=== PATIENT | female | born 1960 | race Caucasian/White ===

== ENCOUNTER 2018-04-23 17:30 | Inpatient (IN) | payer OTHER ==
[~2018-04-23] VITALS: Ht 160 cm; Wt 75.5 kg
[2018-04-23 17:31] VITALS: Ht 160 cm; Wt 75.5 kg
[2018-04-23 17:53] LABS: BASOPHIL % 0.4 % (0-2); PLATELET COUNT 275 x10^3mcL (130-400); RED CELL DISTRIBUTION WIDTH 12.9 % (11.5-14.5)
[2018-04-23 18:03] LABS: CALCIUM 8.8 mg/dL (8.5-10.1); CARBON DIOXIDE 28.6 mmol/L (21-32); CHLORIDE SERUM 103 mmol/L (98-107); CREATININE SERUM 1.1 mg/dL (0.6-1.0); GFR1 55 mL/min; GLUCOSE SERUM 138 mg/dL (74-106); POTASSIUM SERUM 3.4 mmol/L (3.5-5.1); SODIUM SERUM 142 mmol/L (136-145)
[2018-04-23 18:05] LABS: ALBUMIN 3.6 g/dL (3.4-5.0); ALKALINE PHOSPHATASE 55 U/L (46-116); ALT/SGPT 45 U/L (14-59); AST/SGOT 35 U/L (15-37); BILIRUBIN TOTAL 0.16 mg/dL (0.20-1.00); TOTAL PROTEIN, SERUM 7.3 g/dL (6.4-8.2)
[2018-04-23 18:07] LABS: CHOLESTEROL 271 mg/dL (<200)
[2018-04-23] MEDS ORDERED: 8 HOUR PAIN RE650 M1 PO (19:39)
[2018-04-23] MEDS ORDERED: [UNRECOGNIZED DRUG - OTHER] TOP (19:42)
[2018-04-23] MEDS ORDERED: FUROSEMIDE20 MG PO (19:43)
[2018-04-23] MEDS ORDERED: ESTRACE2 MG PO (19:43)
[2018-04-23] MEDS ORDERED: VIS50 PO (19:44)
[2018-04-23] MEDS ORDERED: LEVOTHYROXIN0.075 M2 PO (19:45)
[2018-04-23] MEDS ORDERED: KEPPRA1000 M1 PO (19:45)
[2018-04-23] MEDS ORDERED: DITROPAN XL5 MG PO (19:46)
[2018-04-23] MEDS ORDERED: GOOD SENSE OMEP20 MG PO (19:46)
[2018-04-23] MEDS ORDERED: RISPERDAL2 M1 PO (19:47)
[2018-04-23] MEDS ORDERED: SALSALATE500 MG PO (19:47)
[2018-04-23] MEDS ORDERED: IMITREX50 MG PO (19:48)
[2018-04-23] MEDS ORDERED: ZOLOFT100 MG PO (19:48)
[2018-04-23] MEDS ORDERED: HYDROXYZINE PAMOATE PO (19:50)
[2018-04-23 20:15] LABS: FREE T4 0.87 ng/dL (0.76-1.46); FREE THYROXINE INDEX 2.5 ug/dL (1.4-4.5); T4(THYROXINE) 8.7 ug/dL (4.7-13.3)
[2018-04-23 20:18] LABS: T3 TOTAL 1.19 ng/mL
[2018-04-23 20:49] LABS: microscopic required? NO
[2018-04-23 20:59] LABS: urine erythrocyte NEGATIVE (NEGATIVE)
[2018-04-23 21:07] LABS: AMPHETAMINE QUAL UR NONE DETECTED (See below)
[2018-04-23 21:11] VITALS: BP 152/90
[2018-04-24 05:37] VITALS: BP 124/78
[2018-04-24 06:15] LABS: BASOPHIL % 0.4 % (0-2); CALCIUM 8.2 mg/dL (8.5-10.1); CARBON DIOXIDE 29.1 mmol/L (21-32); CHLORIDE SERUM 107 mmol/L (98-107); CREATININE SERUM 0.9 mg/dL (0.6-1.0); GFR1 > 60 mL/min; GLUCOSE SERUM 106 mg/dL (74-106); PLATELET COUNT 240 x10^3mcL (130-400); POTASSIUM SERUM 3.8 mmol/L (3.5-5.1); RED CELL DISTRIBUTION WIDTH 12.8 % (11.5-14.5); SODIUM SERUM 142 mmol/L (136-145)
[2018-04-24 06:28] LABS: T4(THYROXINE) 6.3 ug/dL (4.7-13.3)
[2018-04-24 07:59] LABS: ERYTHROCYTE SED RATE 7 mm/hr (0-30)
[2018-04-24 09:42] VITALS: BP 133/78
[2018-04-24 16:40] VITALS: BP 135/79
[2018-04-24 20:00] VITALS: BP 131/82
[2018-04-25 05:41] VITALS: BP 124/81
[2018-04-25 06:10] LABS: CALCIUM 8.2 mg/dL (8.5-10.1); CARBON DIOXIDE 28.4 mmol/L (21-32); CHLORIDE SERUM 105 mmol/L (98-107); CREATININE SERUM 0.9 mg/dL (0.6-1.0); GFR1 > 60 mL/min; GLUCOSE SERUM 111 mg/dL (74-106); POTASSIUM SERUM 4.1 mmol/L (3.5-5.1); SODIUM SERUM 140 mmol/L (136-145)
[2018-04-25 06:19] LABS: BASOPHIL % 0.5 % (0-2); PLATELET COUNT 242 x10^3mcL (130-400); RED CELL DISTRIBUTION WIDTH 12.8 % (11.5-14.5)
[2018-04-25 09:26] VITALS: BP 129/84
[2018-04-25 12:34] LABS: RAPID PLASMA REAGIN Non Reactive (Non Reactive); RHEUMATOID ARTHRITIS FACTOR <10.0 IU/mL (0.0-13.9)
[2018-04-25 12:49] VITALS: BP 139/84
[2018-04-25 17:00] VITALS: BP 116/70
[2018-04-25 20:13] VITALS: BP 109/64
[2018-04-26 05:23] VITALS: BP 129/68
[2018-04-26 06:38] LABS: BASOPHIL % 0.5 % (0-2); PLATELET COUNT 237 x10^3mcL (130-400); RED CELL DISTRIBUTION WIDTH 12.9 % (11.5-14.5)
[2018-04-26 09:05] VITALS: BP 116/72
[2018-04-26 09:36] VITALS: BP 116/72
[2018-04-26 11:26] VITALS: BP 116/72
[2018-04-26 12:48] VITALS: BP 105/70
== END 2018-04-26 13:59 | disposition other institution (70) | DRG 917 ==
LOC: ED 17:30 → DU 18:50
PROVIDERS: Internal Medicine; Specialist
DX: T50.991A Poisoning by other drugs, medicaments and biological substances, accidental (unintentional), initial encounter (principal); J69.0 Pneumonitis due to inhalation of food and vomit; G92 Toxic encephalopathy; K21.9 Gastro-esophageal reflux disease without esophagitis; F32.9 Major depressive disorder, single episode, unspecified; G40.909 Epilepsy, unspecified, not intractable, without status epilepticus; Z53.29 Procedure and treatment not carried out because of patient's decision for other reasons; F41.9 Anxiety disorder, unspecified; Z68.27 Body mass index [BMI] 27.0-27.9, adult; Y92.143 Cell of prison as the place of occurrence of the external cause; Z88.8 Allergy status to other drugs, medicaments and biological substances
CPT/HCPCS: 36600; 84439; 86431; 97110-GP; 97116-GP; 97530-GP; G0480; J1200; J1644; J1885; J1956; J3490; J7030; J7620; Q0092; Q0177

== ENCOUNTER 2018-11-12 12:17 | Inpatient (IN) | payer OTHER ==
[~2018-11-12] VITALS: Ht 160 cm; Wt 72.6 kg
[~2018-11-12 12:17] MED LIST: 8 HOUR PAIN RE650 M1 PO; DITROPAN XL5 MG PO; ESTRACE2 MG PO; FUROSEMIDE20 MG PO; GOOD SENSE OMEP20 MG PO; HYDROXYZINE PAMOATE PO; IMITREX50 MG PO; KEPPRA1000 M1 PO; LEVOTHYROXIN0.075 M2 PO; RISPERDAL2 M1 PO; SALSALATE500 MG PO; VIS50 PO; ZOLOFT100 MG PO; [UNRECOGNIZED DRUG - OTHER] TOP
[2018-11-12 12:56] LABS: BASOPHIL % 0.3 % (0-2); PLATELET COUNT 293 x10^3mcL (130-400); RED CELL DISTRIBUTION WIDTH 13.8 % (11.5-14.5)
[2018-11-12 13:16] LABS: CALCIUM 8.7 mg/dL (8.5-10.1); CARBON DIOXIDE 29.9 mmol/L (21-32); CHLORIDE SERUM 102 mmol/L (98-107); CREATININE SERUM 1.1 mg/dL (0.6-1.0); GFR1 55 mL/min; GLUCOSE SERUM 98 mg/dL (74-106); POTASSIUM SERUM 4.2 mmol/L (3.5-5.1); SODIUM SERUM 140 mmol/L (136-145)
[2018-11-12 13:22] LABS: ALBUMIN 3.4 g/dL (3.4-5.0); ALKALINE PHOSPHATASE 72 U/L (46-116); ALT/SGPT 33 U/L (14-59); AST/SGOT 29 U/L (15-37); BILIRUBIN TOTAL 0.4 mg/dL (0.20-1.00); TOTAL PROTEIN, SERUM 7.4 g/dL (6.4-8.2)
[2018-11-12 14:04] LABS: AMPHETAMINE QUAL UR NONE DETECTED (See below)
[2018-11-12 14:06] LABS: UA SPECIFIC GRAVITY 1.025 (1.005-1.035)
[2018-11-12 14:07] LABS: microscopic required? NO; urine erythrocyte NEGATIVE (NEGATIVE)
[2018-11-12] MEDS ORDERED: OLANZAPINE5 M2 (14:18)
[2018-11-12 15:55] VITALS: BP 115/73
[2018-11-12 17:54] VITALS: BP 111/73
[2018-11-12 21:03] VITALS: BP 107/71
[2018-11-12 23:32] VITALS: BP 107/71
[2018-11-13 05:26] VITALS: BP 113/74
[2018-11-13 05:42] VITALS: Ht 160 cm; Wt 72.6 kg
[2018-11-13 07:16] LABS: BASOPHIL % 0.5 % (0-2); PLATELET COUNT 259 x10^3mcL (130-400); RED CELL DISTRIBUTION WIDTH 13.9 % (11.5-14.5)
[2018-11-13 07:48] LABS: T4(THYROXINE) 8.2 ug/dL (4.7-13.3)
[2018-11-13 08:27] LABS: ERYTHROCYTE SED RATE 18 mm/hr (0-30)
[2018-11-13 10:12] VITALS: BP 110/67
[2018-11-13 13:41] VITALS: BP 112/77
[2018-11-13 16:47] VITALS: BP 96/62
[2018-11-13 21:36] VITALS: BP 101/64
[2018-11-14 06:18] LABS: RAPID PLASMA REAGIN Non Reactive (Non Reactive)
[2018-11-14 09:11] LABS: RHEUMATOID ARTHRITIS FACTOR <10.0 IU/mL (0.0-13.9)
== END 2018-11-13 21:05 | disposition other institution (70) | DRG 71 ==
LOC: ED 12:17 → DU 14:16
PROVIDERS: Emergency Medicine; ADMIT Internal Medicine
DX: G93.41 Metabolic encephalopathy (principal); F23 Brief psychotic disorder; K21.9 Gastro-esophageal reflux disease without esophagitis; E03.9 Hypothyroidism, unspecified; G43.909 Migraine, unspecified, not intractable, without status migrainosus; F41.9 Anxiety disorder, unspecified; F32.9 Major depressive disorder, single episode, unspecified; R09.02 Hypoxemia; F06.1 Catatonic disorder due to known physiological condition; G40.909 Epilepsy, unspecified, not intractable, without status epilepticus; E78.5 Hyperlipidemia, unspecified; M19.90 Unspecified osteoarthritis, unspecified site; Z68.28 Body mass index [BMI] 28.0-28.9, adult; Z88.1 Allergy status to other antibiotic agents; Z88.8 Allergy status to other drugs, medicaments and biological substances
CPT/HCPCS: 36600; 82962; 86431; 97112-GP; 97116-GP; 97530-GP; G0480; J1644; J3490; J7620; Q0092; Q0177